=== PATIENT | male | born 1955 | race Caucasian/White ===

== ENCOUNTER 2017-08-06 05:30 | Emergency (ER) | payer OTHER ==
[~2017-08-06] VITALS: Ht 177.8 cm; Wt 65.8 kg
[~2017-08-06 05:30] MED LIST: FINA5TAB3 PO; LEVO25TA58 PO; LEVO50TA77 PO; LISI-217 PO; LISI10TA5 PO; PRO40 PO; TAMS-11 PO
[2017-08-06 05:40] VITALS: BP_SYST 146
--- NOTE | 2017-08-06 05:45 | NUR ---
Patient AAOx3, ambulatory. Patient states having urinary retention since 0200 this morning with suprapubic discomfort. Patient states pain scale 4/10 with a cramping sensation. Patient states pain does not radiate, but it increases when he attempts to sit down. Patient denies any other complaints.
--- NOTE | 2017-08-06 05:45 | NUR ---
Patient to ER bed 06 to gown for evaluation. Side rails up. Report given to NAVEEN Cheek.
--- NOTE | 2017-08-06 05:52 | NUR ---
ER Dr. Neely at bedside examining patient.
[2017-08-06] MEDS ORDERED: LIDOCAINE VISCOUS 2%, 15 ML UDC MM ONE (06:00)
--- NOTE | 2017-08-06 06:15 | NUR ---
# 16 FR Higgins catheter with use of sterile technique. Immediate return of 400 cc yellow urine noted. Bedside drainage bag placed below level of bladder. Urine sample collected and sent to lab. Pt tolerated procedure well.
[2017-08-06 06:48] VITALS: BP_SYST 137
--- NOTE | 2017-08-06 06:48 | NUR ---
Patient given written and verbal discharge instructions and verbalizes understanding. ER MD discussed with patient the results and treatment provided. Patient in stable condition. ID arm band removed. Rx of ciprofloxacin given. Patient educated on pain management and to follow up with PMD. Pain Scale 0/10. Opportunity for questions provided and answered.
[2017-08-06 07:03] LABS: BILIRUBIN,URINE NEGATIVE (NEGATIVE); BLOOD, URINE NEGATIVE (NEGATIVE); CLARITY/URINE CLEAR (CLEAR); COLOR,URINE YELLOW (YELLOW); GLUCOSE,URINE NEGATIVE (NEGATIVE); KETONES,URINE NEGATIVE (NEGATIVE); LEUKOCYTE ESTERASE ,URINE NEGATIVE (NEGATIVE); NITRITE, URINE NEGATIVE (NEGATIVE); PROTEIN URINE NEGATIVE (NEGATIVE); UROBILINOGEN,URINE 0.2 (0.2-1.0)
== END 2017-08-06 06:48 | disposition home or self-care (01) ==
LOC: SED 05:30
DX: N40.0 Benign prostatic hyperplasia without lower urinary tract symptoms (principal); R33.9 Retention of urine, unspecified; K21.9 Gastro-esophageal reflux disease without esophagitis; I10 Essential (primary) hypertension; E07.9 Disorder of thyroid, unspecified
CPT/HCPCS: 51702; 81003; 99284; J2001

== ENCOUNTER 2018-12-31 19:09 | Emergency (ER) | payer OTHER ==
[~2018-12-31] VITALS: Ht 177.8 cm; Wt 68.0 kg
[~2018-12-31 19:09] MED LIST changes: +LEVO25TA2 PO; -LEVO25TA58 PO; -LEVO50TA77 PO; +SYN50 PO
[2018-12-31 19:13] VITALS: BP_SYST 131
[2018-12-31 21:13] LABS: BILIRUBIN,URINE NEGATIVE (NEGATIVE); CLARITY/URINE CLEAR (CLEAR); COLOR,URINE YELLOW (YELLOW); GLUCOSE,URINE NEGATIVE (NEGATIVE); KETONES,URINE TRACE (NEGATIVE); LEUKOCYTE ESTERASE ,URINE NEGATIVE (NEGATIVE); NITRITE, URINE NEGATIVE (NEGATIVE); PROTEIN URINE NEGATIVE (NEGATIVE); UROBILINOGEN,URINE 0.2 (0.2-1.0)
[2018-12-31 21:42] LABS: BLOOD, URINE TRACE (NEGATIVE)
[2018-12-31 21:58] LABS: BACTERIA,URINE FEW /HPF (None Seen); WBC,URINE 0-3 /HPF (0-3)
[2018-12-31 21:59] LABS: MUCUS,URINE 1+ /LPF (None Seen)
[2018-12-31 23:35] VITALS: BP_SYST 118
== END 2018-12-31 23:35 | disposition home or self-care (01) ==
LOC: SED 19:09
DX: N40.0 Benign prostatic hyperplasia without lower urinary tract symptoms (principal); R33.9 Retention of urine, unspecified; K21.9 Gastro-esophageal reflux disease without esophagitis; I10 Essential (primary) hypertension; Z79.899 Other long term (current) drug therapy
CPT/HCPCS: 81000-TC; 99284